=== PATIENT | male | born 1965 | race Caucasian/White ===

== ENCOUNTER 2017-01-14 09:01 | Emergency (ER) | payer BC ==
[~2017-01-14] VITALS: Wt 114.5 kg
[~2017-01-14 09:01] MED LIST: AMLO-147 PO; ATOR20TA38 PO; COLC0.6T6 PO; DICL50TA11 PO; HYD25 PO; HYDR-3498 PO; IBUP-1542 PO; INDO25CA25 PO; OXYC-281 PO; PERCOCET PO
[2017-01-14] MEDS ORDERED: BELLADONNA/PHENOBARBITAL TAB PO STA (09:43)
[2017-01-14] MEDS ORDERED: FAMOTIDINE 20 MG TAB PO STA (09:43)
[2017-01-14] MEDS ORDERED: LIDOCAINE/MYLANTA 40 ML BTL PO STA (09:43)
[2017-01-14] MEDS ORDERED: MAG355OR14 PO (09:47)
[2017-01-14] MEDS ORDERED: FAMO40TA52 PO (09:47)
[2017-01-14] MEDS ORDERED: ALPR0.5T PO (09:49)
[2017-01-14] MEDS ORDERED: LORAZEPAM 0.5 MG TAB PO ONE (10:00)
--- NOTE | 2017-01-14 11:04 | ERD ---
ER Documentation Chief Complaint Date/Time DATE: 01/14/17 TIME: 10:57 Chief Complaint ABD PAIN, HEADACHE, COUGH, ELEVATED BP HPI 51-year-old man with history of anxiety presents with multiple symptoms including burning epigastric discomfort which is nonradiating and non-exertional , pressure in the posterior scalp and neck, anxiety, palpitations, cough, and elevated blood pressure. He does have a history of hypertension and states he has not been using his medications as prescribed. He denies exertional chest pain, no shortness of breath, no weakness in his arms or legs, no slurred speech , no suicidal homicidal ideation. Patient denies calf or leg swelling, no swelling or redness to the knees. Patient denies fevers or chills. ROS All systems reviewed and are negative except as per history of present illness. Medications Home Meds Active Scripts Alprazolam* (Xanax*) 0.5 Mg Tab, 0.5 MG PO TID for ANXIETY, #12 TAB Prov:SHADY DUMONT MD 01/14/17 Famotidine* (Famotidine*) 40 Mg Tablet, 40 MG PO HS, #30 TAB Prov:SHADY DUMONT MD 01/14/17 Mag Hydrox/Al Hydrox/Simeth (Maalox Advanced Suspension) 355 Ml Oral.susp, 2 TSP PO TID for PAIN, #24 OZ Prov:SHADY DUMONT MD 01/14/17 Hydrocodone Bit-Acetaminophen* (Kite*) 5-325 Mg Tab, 1 TAB PO Q6 Y for PAIN, # 14 TAB Prov:EARL MARION MD 03/07/16 Colchicine* (Colcrys*) 0.6 Mg Tablet, 0.6 MG PO BID for 2 Days, TAB Prov:EARL MARION MD 03/07/16 Indomethacin* (Indocin*) 25 Mg Capsule, 25 MG PO Q6, #20 CAP Prov:EARL MARION MD 03/07/16 Diclofenac Sodium* (Diclofenac Sodium*) 50 Mg Tablet.dr, 50 MG PO BID, #30 TAB Prov:ANGELITO ZAMORA NP 03/03/16 Oxycodone Hcl-Acetaminophen* (Percocet*) 5-325 Mg Tablet, 1 TAB PO TID Y for PAIN LEVEL 6-10, #12 TAB Prov:SHADY DUMONT MD 03/01/16 Oxycodone Hcl/Acetaminophen (Percocet) 1 Tab Tab, 1 TAB PO TID for PAIN LEVEL 6- 10, #12 TAB Prov:SHADY DUMONT MD 03/01/16 Oxycodone Hcl-Acetaminophen* (Percocet*) 5-325 Mg Tablet, 1 TAB PO TID Y for PAIN LEVEL 6-10, #12 TAB Prov:SHADY DUMONT MD 03/01/16 Ibuprofen* (Ibuprofen*) 600 Mg Tablet, 600 MG PO TID for PAIN AND/OR INFLAMMATION, #30 TAB Prov:SHADY DUMONT MD 03/01/16 Reported Medications Amlodipine Besylate* (Amlodipine Besylate*) 10 Mg Tablet, 10 MG PO DAILY, #30 TAB 11/25/15 Atorvastatin Calcium* (Atorvastatin Calcium*) 20 Mg Tablet, 20 MG PO QHS, #30 TAB 11/25/15 Hydrochlorothiazide* (Hydrochlorothiazide*) 25 Mg Tab, 25 MG PO DAILY, #30 TAB 11/25/15 Allergies Allergies: Coded Allergies: No Known Drug Allergies (Verified Allergy, Unknown, 12/13/14) PMhx/Soc Hypertension, gastritis, anxiety, obesity, gouty arthritis History of Surgery: No (left inguinal hernia, right knee surgery) Anesthesia Reaction: No Hx Neurological Disorder: No Hx Respiratory Disorders: No Hx Cardiac Disorders: No Hx Psychiatric Problems: No Hx Miscellaneous Medical Probl: Yes (LEFT LOWER ABD HERNIA X 3 YEARS AGO ) Hx Alcohol Use: Yes (OCASSIONAL ) Hx Substance Use: No Hx Tobacco Use: No Smoking Status: Never smoker FmHx Family History: No diabetes Physical Exam Vitals Vital Signs Date Time Temp Pulse Resp B/P Pulse Ox O2 Delivery O2 Flow Rate FiO2 01/14/17 09:04 98.6 86 17 207/107 98 Physical Exam GENERAL: Well-developed, well-nourished, appears anxious HEENT: Moist mucous membranes, pink conjunctiva, no cervical spine tenderness or step-off deformities, no goiter, no jaundice or icterus, extraocular movements intact without pain. No submandibular induration, and no pharyngeal erythema NEURO: Alert and oriented 3, cranial nerves II through XII intact bilaterally, pupils equal round reactive to light, no focal deficits or facial asymmetry, sensation intact distally Strength 5/5 in upper and lower extremities bilaterally CARDIAC: Regular rate and rhythm, no murmurs rubs or gallops LUNGS: Clear bilaterally no wheezing crackles or stridor ABDOMEN: Soft nontender, no guarding, no rigidity, no rebound, no psoas sign no obturator sign. Normoactive bowel sounds SKIN: Warm and dry to touch, no abrasions, contusions, or hematomas, no lacerations, no ecchymosis, no target lesions, and without ulcers EXTREMITIES: No clubbing cyanosis or edema, calves are bilaterally symmetrical, no Homans sign, no popliteal cord sign. Distal pulses equal and bilateral PSYCH: Anxious Results 24 hrs Current Medications Medications (Trade) Dose Ordered Sig/Barbara Route PRN Reason Start Time Stop Time Status Last Admin Dose Admin Lorazepam (Ativan) 0.5 mg ONCE ONCE PO 01/14/17 10:00 01/14/17 10:01 DC 01/14/17 09:59 Famotidine (Pepcid) 40 mg ONCE STAT PO 01/14/17 09:43 01/14/17 09:46 DC 01/14/17 09:59 Miscellaneous Medication (Gi Cocktail (2)) 40 ml ONCE STAT PO 01/14/17 09:43 01/14/17 09:46 DC 01/14/17 10:00 Belladonna/ Phenobarbital () 2 tab ONCE STAT PO 01/14/17 09:43 01/14/17 09:46 DC 01/14/17 09:59 Clonidine (Catapres) 0.1 mg ONCE ONCE PO 01/14/17 10:00 01/14/17 10:01 DC 01/14/17 09:59 Procedures/MDM Patient was placed on gambling monitor rhythm strip revealed a sinus rhythm at about 80 bpm with upright P and T waves. Patient was afebrile. I administered clonidine 0.1 mg p.o. for hypertension, lorazepam 0.5 mg p.o. for anxiety, famotidine 40 mg p.o., and GI cocktail 50 cc p.o. with good response. EKG performed, read by me revealed a normal sinus rhythm at 77 bpm, left axis deviation and a right ventricular conduction delay with a QRS duration of 100 ms , no concerning ST elevations or depressions noted. Blood pressure improved after above medications. Differential diagnoses considered, included but not limited to acute coronary syndrome, pulmonary embolism, aortic dissection, abdominal aortic aneurysm, sepsis, stroke, meningitis, encephalitis, pneumonia, appendicitis, cholecystitis , bowel obstruction, pyelonephritis, nephrolithiasis, cystitis, as well as metabolic, hematologic, and electrolyte abnormalities. As well as abscess, cellulitis, fractures, and dislocations. Patient feels much better at this time, and vital signs are normal, symptoms have improved. I did give strict instructions to return to the ED if symptoms continue or worsen, patient will otherwise follow-up with primary care physician. Patient understood instructions and agreed to plan. Departure Diagnosis: Primary Impression: Hypertension Hypertension type: essential hypertension Qualified Code: I10 - Essential hypertension Additional Impressions: Dizziness GERD (gastroesophageal reflux disease) Esophagitis presence: with esophagitis Qualified Code: K21.0 - Gastroesophageal reflux disease with esophagitis Anxiety Condition: Good Patient Instructions: High Blood Pressure (Hypertension), Dizziness, Unk Cause , Gerd (Adult) SHADY DUMONT MD Jan 14, 2017 11:03
[2017-01-14 11:12] VITALS: BP 157/100; PULSE 89; RESP 20
== END 2017-01-14 11:13 | disposition home or self-care (01) ==
LOC: E/R 09:01
DX: I10 Essential (primary) hypertension (principal); R40.2252 Coma scale, best verbal response, oriented, at arrival to emergency department; R42 Dizziness and giddiness; K21.0 Gastro-esophageal reflux disease with esophagitis; F41.9 Anxiety disorder, unspecified; E66.9 Obesity, unspecified; R40.2142 Coma scale, eyes open, spontaneous, at arrival to emergency department; R40.2362 Coma scale, best motor response, obeys commands, at arrival to emergency department
CPT/HCPCS: 93005; 99283; Z7610

== ENCOUNTER 2017-01-16 17:15 | Emergency (ER) | payer BC ==
[~2017-01-16] VITALS: Ht 170.2 cm; Wt 114.0 kg
[~2017-01-16 17:15] MED LIST changes: +ALPR0.5T PO; +FAMO40TA52 PO; +MAG355OR14 PO
[2017-01-16 17:37] VITALS: Ht 170.2 cm; Wt 114.0 kg
[2017-01-16] MEDS ORDERED: SOD CHLORIDE 0.9% 500 ML IV STA (18:47)
[2017-01-16] MEDS ORDERED: DIPHENHYDRAMINE 50 MG INJ IV STA (18:47)
[2017-01-16] MEDS ORDERED: METOCLOPRAMIDE 10 MG INJ IV STA (18:47)
[2017-01-16 19:14] LABS: ADD SCAN DIFF NO
[2017-01-16 19:17] LABS: BASOPHIL # 0.1 10^3/ul (0.0-0.1); BASOPHILS % 0.6 % (0.0-2.0); EOSINOPHILS # 0.2 10^3/ul (0.0-0.5); EOSINOPHILS % 1.3 % (0.0-7.0); HEMATOCRIT 39.5 % (42.0-52.0); HEMOGLOBIN 13.7 g/dl (14.0-18.0); LYMPHOCYTES # 4.6 10^3/ul (0.8-2.9); LYMPHOCYTES % 36.3 % (15.0-51.0); MEAN CORPUSCULAR HEMOGLOBIN 29.9 pg (29.0-33.0); MEAN CORPUSCULAR HGB CONC 34.7 g/dl (32.0-37.0); MEAN CORPUSCULAR VOLUME 86.2 fl (82.0-101.0); MEAN PLATELET VOLUME 9.7 fl (7.4-10.4); MONOCYTE # 0.7 10^3/ul (0.3-0.9); MONOCYTES % 5.8 % (0.0-11.0); NEUTROPHIL # 6.9 10^3/ul (1.6-7.5); NEUTROPHILS % 54.6 % (39.0-77.0); PLATELET COUNT 370 10^3/UL (140-415); RED BLOOD COUNT 4.58 10^6/ul (4.70-6.10); RED CELL DISTRIBUTION WIDTH 11.9 % (11.5-14.5); WHITE BLOOD COUNT 12.7 10^3/ul (4.8-10.8)
[2017-01-16 19:26] LABS: ALBUMIN 3.8 g/dl (3.3-4.9); POTASSIUM 4.1 mmol/L (3.5-5.1)
[2017-01-16 19:28] LABS: CREATININE 0.89 mg/dl (0.61-1.24)
[2017-01-16 19:29] LABS: ALBUMIN/GLOBULIN RATIO 1.05; BILIRUBIN,INDIRECT 0.3 mg/dl (0-1.1); BILIRUBIN,TOTAL 0.3 mg/dl (0.2-1.3); CALCIUM 8.8 mg/dl (8.4-10.2); TOTAL PROTEIN 7.4 g/dl (6.1-8.1)
--- NOTE | 2017-01-16 19:33 | RADRPT ---
PROCEDURE: CT Brain without contrast. CLINICAL INDICATION: Headaches TECHNIQUE: A CT of the brain was performed on a [employer] 64-slice CT scanner utilizing axial imaging from the skull base through the vertex without IV contrast. Multiplanar reformatted images were made. Images were reviewed on a PACS workstation. The CTDIvol is 43.05 mGy and the DLP is 720 .23 mGycm. One of the following 3 dose reduction techniques were used: Automated exposure control; adjustment of the mA and/or kV according to patient size; or use of iterative reconstruction technique. COMPARISON: 02/09/[address] FINDINGS: There is no intracranial hemorrhage, mass effect, or midline shift. No extra-axial fluid collection is seen. The ventricles and sulci are normal in size and configuration. Normal russo-white matter di fferentiation is present. The visualized scalp and calvarium are again remarkable for a stable appearing 3 mm radio dense fore ign body adjacent to the left nasal bone. A small right frontal scalp soft tissue prominence or lesi on is noted which measures 2 cm. This is unchanged from prior CT. The bilateral orbits are normal. The bilateral paranasal sinuses, mastoid air cells and middle ear cavities are clear. IMPRESSION: 1. No evidence of acute intracranial hemorrhage, infarcts, or acute intracranial pathology. 2. 2 cm right frontal convexity soft tissue asymmetry stable from prior CT. 3. Stable 3 mm radiodense metallic foreign body adjacent to the left nasal bone RPTAT: HDC .Melida Nash MD, Date Time Electronically viewed and signed by .Melida Nash MD, on 01/16/2017 19:33 .C/
[2017-01-16] MEDS ORDERED: FIORICET PO (20:53)
--- NOTE | 2017-01-16 21:23 | ERA ---
ER Documentation Chief Complaint Date/Time DATE: 01/16/17 TIME: 21:18 Chief Complaint headache x 4 days HPI 51-year-old male who presents emergency room with multiple complaints for approximately 3 years. He describes epigastric abdominal pain and headache. He describes daily headaches that are gradual, dull, occipital. The headaches have not been evaluated. With CT imaging. The patient's abdominal pain is unchanged for approximately 3 years. For some reason the patient's primary care doctor sent him to the emergency room even though the symptoms are unchanged. He denies any fevers or chills, no chest pain. ROS All systems reviewed and are negative except as per history of present illness. Medications Home Meds Active Scripts Acetamin/Butalbital/Caffeine* (Fioricet*) [id number] Tab, 1 TAB PO Q6H Y for PAIN, #30 TAB Prov:NHI DANIELS MD 01/16/17 Alprazolam* (Xanax*) 0.5 Mg Tab, 0.5 MG PO TID for ANXIETY, #12 TAB Prov:SHADY DUMONT MD 01/14/17 Famotidine* (Famotidine*) 40 Mg Tablet, 40 MG PO HS, #30 TAB Prov:SHADY DUMONT MD 01/14/17 Mag Hydrox/Al Hydrox/Simeth (Maalox Advanced Suspension) 355 Ml Oral.susp, 2 TSP PO TID for PAIN, #24 OZ Prov:SHADY DUMONT MD 01/14/17 Hydrocodone Bit-Acetaminophen* ([place]*) 5-325 Mg Tab, 1 TAB PO Q6 Y for PAIN, # 14 TAB Prov:EARL MARION MD 03/07/16 Colchicine* (Colcrys*) 0.6 Mg Tablet, 0.6 MG PO BID for 2 Days, TAB Prov:EARL MARION MD 03/07/16 Indomethacin* (Indocin*) 25 Mg Capsule, 25 MG PO Q6, #20 CAP Prov:EARL MARION MD 03/07/16 Diclofenac Sodium* (Diclofenac Sodium*) 50 Mg Tablet.dr, 50 MG PO BID, #30 TAB Prov:ANGELITO ZAMORA NP 03/03/16 Oxycodone Hcl-Acetaminophen* (Percocet*) 5-325 Mg Tablet, 1 TAB PO TID Y for PAIN LEVEL 6-10, #12 TAB Prov:SHADY DUMONT MD 03/01/16 Oxycodone Hcl/Acetaminophen (Percocet) 1 Tab Tab, 1 TAB PO TID for PAIN LEVEL 6- 10, #12 TAB Prov:SHADY DUMONT MD 03/01/16 Oxycodone Hcl-Acetaminophen* (Percocet*) 5-325 Mg Tablet, 1 TAB PO TID Y for PAIN LEVEL 6-10, #12 TAB Prov:SHADY DUMONT MD 03/01/16 Ibuprofen* (Ibuprofen*) 600 Mg Tablet, 600 MG PO TID for PAIN AND/OR INFLAMMATION, #30 TAB Prov:SHADY DUMONT MD 03/01/16 Reported Medications Amlodipine Besylate* (Amlodipine Besylate*) 10 Mg Tablet, 10 MG PO DAILY, #30 TAB 11/25/15 Atorvastatin Calcium* (Atorvastatin Calcium*) 20 Mg Tablet, 20 MG PO QHS, #30 TAB 11/25/15 Hydrochlorothiazide* (Hydrochlorothiazide*) 25 Mg Tab, 25 MG PO DAILY, #30 TAB 11/25/15 Allergies Allergies: Coded Allergies: No Known Drug Allergies (Verified Allergy, Unknown, 12/13/14) PMhx/Soc History of Surgery: No (left inguinal hernia, right knee surgery) Anesthesia Reaction: No Hx Neurological Disorder: No Hx Respiratory Disorders: No Hx Cardiac Disorders: No Hx Psychiatric Problems: No Hx Miscellaneous Medical Probl: Yes (LEFT LOWER ABD HERNIA X 3 YEARS AGO ) Hx Alcohol Use: Yes (OCASSIONAL ) Hx Substance Use: No Hx Tobacco Use: No Smoking Status: Unknown if ever smoked FmHx Family History: No diabetes Physical Exam Vitals Vital Signs Date Time Temp Pulse Resp B/P Pulse Ox O2 Delivery O2 Flow Rate FiO2 01/16/17 17:37 98.7 79 18 174/103 96 Physical Exam General: Well developed, well nourished, no acute distress Head: Normocephalic, atraumatic. Eyes: Pupils equally reactive, EOM intact ENT: Moist mucous membranes Neck: Supple, no lymphadenopathy Respiratory: Lungs clear bilaterally, no distress Cardiovascular: RRR, no murmurs, rubs, or gallops Abdominal: Soft, non-tender, non-distended, no peritoneal signs : Deferred MSK: No edema, no unilateral swelling, 5/5 strength Neurologic: Alert and oriented, moving all extremities, normal speech, no focal weakness, no cerebellar signs Skin: No rash Psych: Normal mood Result Diagram: 01/16/17190901/16/171909 Results 24 hrs Laboratory Tests Test 01/16/17 19:10 Alanine Aminotransferase (ALT/SGPT) 36IU/L Albumin 3.8g/dl Albumin/Globulin Ratio 1.05 Alkaline Phosphatase 173IU/L Anion Gap 15 Aspartate Amino Transf (AST/SGOT) 31IU/L Basophils # 0.110^3/ul Basophils % 0.6% Blood Urea Nitrogen 15mg/dl Calcium Level 8.8mg/dl Carbon Dioxide Level 29mmol/L Chloride Level 103mmol/L Creatinine 0.89mg/dl Direct Bilirubin 0.00mg/dl Eosinophils # 0.210^3/ul Eosinophils % 1.3% Globulin 3.60g/dl Glucose Level 95mg/dl Hematocrit 39.5% Hemoglobin 13.7g/dl Indirect Bilirubin 0.3mg/dl Lipase 126U/L Lymphocytes # 4.610^3/ul Lymphocytes % 36.3% Mean Corpuscular Hemoglobin 29.9pg Mean Corpuscular Hemoglobin Concent 34.7g/dl Mean Corpuscular Volume 86.2fl Mean Platelet Volume 9.7fl Monocytes # 0.710^3/ul Monocytes % 5.8% Neutrophils # 6.910^3/ul Neutrophils % 54.6% Nucleated Red Blood Cells # 0.010^3/ul Nucleated Red Blood Cells % 0.0/100WBC Platelet Count 02333^3/UL Potassium Level 4.1mmol/L Red Blood Count 4.5810^6/ul Red Cell Distribution Width 11.9% Sodium Level 143mmol/L Total Bilirubin 0.3mg/dl Total Protein 7.4g/dl White Blood Count 12.710^3/ul Current Medications Medications (Trade) Dose Ordered Sig/Barbara Route PRN Reason Start Time Stop Time Status Last Admin Dose Admin Sodium Chloride (NS) 500 ml @ 500 mls/hr Q1H STAT IV 01/16/17 18:47 01/16/17 19:46 DC 01/16/17 19:07 Metoclopramide HCl (Reglan) 10 mg ONCE STAT IV 01/16/17 18:47 01/16/17 18:49 DC 01/16/17 19:07 Diphenhydramine HCl (Benadryl) 25 mg ONCE STAT IV 01/16/17 18:47 01/16/17 18:49 DC 01/16/17 19:06 Procedures/MDM EKG, MONITORS, & DIAGNOSTIC IMAGING: IMPRESSION: 1. No evidence of acute intracranial hemorrhage, infarcts, or acute intracranial pathology. 2. 2 cm right frontal convexity soft tissue asymmetry stable from prior CT. 3. Stable 3 mm radiodense metallic foreign body adjacent to the left nasal bone LAB INTERPRETATION: Subtle leukocytosis that is nonspecific, nonobstructive hepatobiliary pattern MEDICAL DECISION MAKING: The patient has had 3 years of abdominal pain and headaches. Nothing is changed today. Is unclear why the patient's doctor sent him to the emergency room. He has a benign abdominal exam a nonfocal neurologic exam. He states that he has not had CT imaging in the past therefore CT imaging to rule out mass would be reasonable. His abdominal pain is likely subacute, likely secondary to gastric process. The patient has not had GI follow-up or endoscopy. Referral was indicated. ER COURSE: Subtle leukocytosis but no other acute process. The patient was given IV fluids Reglan and Benadryl with resolution of his symptoms. Patient is stable for outpatient management. I reached out to the patient's referring provider with no success. I kept the patient and/or family informed of laboratory and diagnostic imaging results throughout the emergency room course. DISPOSITION PLAN: We discussed follow up with the patient's primary care doctor within 24 to 48 hours as needed. We also discussed return to the emergency room for worsening symptoms or worsening condition. Outpatient referral: See primary care physician for referral to neurology and gastroenterology Discharge Medications: Fioricet Departure Diagnosis: Primary Impression: Chronic headache Qualified Code: R51 - Chronic nonintractable headache, unspecified headache type Additional Impression: Chronic abdominal pain Condition: Stable Patient Instructions: Headache, Unspecified Additional Instructions: Call your primary care doctor TOMORROW for an appointment during the next 1 WEEK.Tell the patient care secretary that you were referred from this facility.See the doctor sooner or return here if your condition worsens before your appointment time. NHI DANIELS MD Jan 16, 2017 21:23
== END 2017-01-16 21:21 | disposition home or self-care (01) ==
LOC: E/R 17:15
DX: R51 Headache (principal); R10.9 Unspecified abdominal pain; R40.2142 Coma scale, eyes open, spontaneous, at arrival to emergency department; R40.2252 Coma scale, best verbal response, oriented, at arrival to emergency department; R40.2362 Coma scale, best motor response, obeys commands, at arrival to emergency department
CPT/HCPCS: 36415; 70450; 80053; 83690; 85025; 96374; 96375; 99285; J1200; J2765; J7040

== ENCOUNTER 2017-05-31 14:25 | Emergency (ER) | payer BC ==
[~2017-05-31] VITALS: Ht 175.3 cm; Wt 114.5 kg
[~2017-05-31 14:25] MED LIST changes: +FIORICET PO
[2017-05-31 14:26] VITALS: Ht 175.3 cm; Wt 114.5 kg
[2017-05-31] MEDS ORDERED: SOD CHLORIDE 0.9% 1,000 ML IV STA (15:09)
[2017-05-31] MEDS ORDERED: morphine 4 MG/ML VIAL IV STA (15:09)
[2017-05-31] MEDS ORDERED: ONDANSETRON 4 MG INJ IV STA (15:09)
[2017-05-31 15:22] LABS: URINE BLOOD (Dip) POC Negative (NEGATIVE)
[2017-05-31 15:49] LABS: BASOPHIL # 0.1 10^3/ul (0.0-0.1); BASOPHILS % 0.7 % (0.0-2.0); EOSINOPHILS # 0.3 10^3/ul (0.0-0.5); EOSINOPHILS % 2.9 % (0.0-7.0); HEMATOCRIT 40.6 % (42.0-52.0); HEMOGLOBIN 14.3 g/dl (14.0-18.0); LYMPHOCYTES # 3.5 10^3/ul (0.8-2.9); LYMPHOCYTES % 34.5 % (15.0-51.0); MEAN CORPUSCULAR HGB CONC 35.2 g/dl (32.0-37.0); MEAN CORPUSCULAR VOLUME 85.1 fl (82.0-101.0); MONOCYTE # 0.8 10^3/ul (0.3-0.9); MONOCYTES % 7.8 % (0.0-11.0); NEUTROPHIL # 5.3 10^3/ul (1.6-7.5); NEUTROPHILS % 53.3 % (39.0-77.0); PLATELET COUNT 330 10^3/UL (140-415); RED BLOOD COUNT 4.77 10^6/ul (4.70-6.10); RED CELL DISTRIBUTION WIDTH 12.3 % (11.5-14.5)
--- NOTE | 2017-05-31 15:52 | RADRPT ---
PROCEDURE: CT abdomen and pelvis without IV contrast. CLINICAL INDICATION: Abdominal pain TECHNIQUE: CT scan of the abdomen and pelvis without contrast was performed on the [employer] volumetric [address] scanner. The patient was scanned without intravenous contrast. Coronal and sagittal refo rmatted images were obtained from the axial source images. The CTDI vol is 22.27 mGy and the DLP is 1510.09 mGy-cm. COMPARISON: None. FINDINGS: CT abdomen: The lung bases are clear. The heart size is not enlarged and is without pericardial thickening or e ffusion. The liver is normal in size and density and is without focal mass or intrahepatic biliary dilatation . The spleen is normal in size and homogeneous in density. The stomach is grossly unremarkable. T he pancreas as visualized is normal. The gallbladder has been removed. No common bile duct dilatat ion is seen. The adrenal glands are symmetric and normal. The kidneys are symmetrically unremarkabl e as well. No renal calculus or obstructive uropathy or mass lesion is seen. The aorta is of normal in caliber. There is no retroperitoneal lymphadenopathy. The ismael hepatis region is clear. The large bowel is stool-filled. The small and large bowel and mesentery, as visua lized, are otherwise unremarkable. The normal appendix is identified. CT pelvis: The pelvic organs are normal. The pelvic sidewalls and inguinal regions are clear. No pelvic mass, lymphadenopathy, or free fluid is seen. No acute inflammation is seen. The urinary bladder is wit hin normal limits. Degenerative spondylosis of the lumbar spine is seen. No osteolytic or osteoblastic lesion is detec dougie. IMPRESSION: 1. No acute pathology in the abdomen and pelvis. 2. Stool filled large bowel. 3. Status post cholecystectomy. RPTAT: HPNM Physician Marc Date Time Electronically viewed and signed by Physician Marc on 05/31/2017 15:52 /
[2017-05-31 16:07] LABS: ADD UMIC NO; UR ASCORBIC ACID NEGATIVE (NEGATIVE); UR BILIRUBIN (Dip) NEGATIVE (NEGATIVE); UR BLOOD (Dip) NEGATIVE (NEGATIVE); UR CLARITY CLEAR (CLEAR); UR COLOR YELLOW (YELLOW); UR GLUCOSE (Dip) NEGATIVE (NEGATIVE); UR KETONES (Dip) NEGATIVE (NEGATIVE); UR LEUKOCYTE ESTERASE (Dip) NEGATIVE Leu/ul (NEGATIVE); UR NITRITE (Dip) NEGATIVE (NEGATIVE); UR SPECIFIC GRAVITY (Dip) 1.024 (1.003-1.030); UR TOTAL PROTEIN (Dip) NEGATIVE (NEGATIVE); UR UROBILINOGEN (Dip) NEGATIVE (NEGATIVE)
--- NOTE | 2017-05-31 16:07 | RADRPT ---
PROCEDURE: Chest Radiograph. CLINICAL INDICATION: Abdominal pain. TECHNIQUE: Single frontal chest radiograph. COMPARISON: CT abdomen pelvis 05/31/2017 FINDINGS: The cardiomediastinal silhouette is within normal limits. No infiltrate or effusion is seen. Th e bones are intact. IMPRESSION: 1. Unremarkable chest radiograph. RPTAT: KK .Berto Louis MD, MD Date Time Electronically viewed and signed by .Berto Louis MD, on 05/31/2017 16:07 .B/
[2017-05-31 16:08] LABS: ALANINE AMINOTRANSFERASE 55 IU/L (13-69); ALBUMIN 4.4 g/dl (3.3-4.9); ALBUMIN/GLOBULIN RATIO 1.12; ALKALINE PHOSPHATASE 192 IU/L (42-121); ANION GAP 19 (8-16); ASPARTATE AMINO TRANSFERASE 45 IU/L (15-46); BILIRUBIN,INDIRECT 0.5 mg/dl (0-1.1); BILIRUBIN,TOTAL 0.5 mg/dl (0.2-1.3); BLOOD UREA NITROGEN 15 mg/dl (7-20); CALCIUM 9.1 mg/dl (8.4-10.2); CARBON DIOXIDE 27 mmol/L (21-31); CHLORIDE 103 mmol/L (97-110); GLUCOSE 112 mg/dl (70-220); POTASSIUM 3.8 mmol/L (3.5-5.1); SODIUM 145 mmol/L (135-144); TOTAL PROTEIN 8.3 g/dl (6.1-8.1)
[2017-05-31 16:23] LABS: TROPONIN-I < 0.012 ng/ml (0.00-0.12)
[2017-05-31] MEDS ORDERED: KETOROLAC 30 MG INJ IV STA (16:34)
[2017-05-31] MEDS ORDERED: POLYETHYLENE GLYCOL 17 GM PACKET PO STA (16:37)
[2017-05-31] MEDS ORDERED: NA PHOSPHATE/BIPHOS 133 ML ENEMA PR STA (16:59)
[2017-05-31] MEDS ORDERED: DOCUSATE SODIUM 100 MG CAP PO ONE (17:00)
[2017-05-31] MEDS ORDERED: BENZ100C70 PO (17:23)
[2017-05-31] MEDS ORDERED: ACET325T33 PO (17:23)
[2017-05-31] MEDS ORDERED: FLUT9.9S NASAL (17:25)
[2017-05-31 18:12] VITALS: BP 167/98; PULSE 85; RESP 20; TEMP 98.3
[2017-05-31] MEDS ORDERED: BEN25 PO (18:19)
--- NOTE | 2017-06-01 16:37 | ERD ---
ER Documentation Chief Complaint Date/Time DATE: 06/01/17 TIME: 16:31 Chief Complaint RIB CAGE PAIN , COUGH X FEW DAYS HPI 51-year-old male history of hypertension presenting to the emergency department with multiple complaints. Patient is complaining of cough, chest discomfort when he takes a deep breath and, shortness of breath, right upper quadrant abdominal pain for the past couple weeks. Patient states that the pain is located in his right upper rib cage. Patient complains of cough episodes that last for a couple minutes 4 times a day. Patient is requesting pain medication. He denies taking any medications for this. ROS All systems reviewed and are negative except as per history of present illness. Medications Home Meds Active Scripts Diphenhydramine Hcl* (Benadryl*) 25 Mg Cap, 25 MG PO Q6 Y for ITCHING/RASH, #30 TAB Prov:SHELTON SCOTT PA-C 05/31/17 Fluticasone Propionate (Flonase Allergy Relief) 9.9 Ml [place].susp, 1 SPRAY NASAL BID, #1 BOTTLE TO EACH NOSTRIL Prov:SHELTON SCOTT PA-C 05/31/17 Benzonatate* (Tessalon Perle*) 100 Mg Capsule, 100 MG PO Q8H Y for COUGH, #20 CAP Prov:SHELTON SCOTT PA-C 05/31/17 Acetaminophen* (Tylenol*) 325 Mg Tablet, 2 TAB PO Q4 Y for PAIN AND OR ELEVATED TEMP, #30 TAB Prov:SHELTON SCOTT PA-C 05/31/17 Acetamin/Butalbital/Caffeine* (Fioricet*) [id number] Tab, 1 TAB PO Q6H Y for PAIN, #30 TAB Prov:NHI DANIELS MD 01/16/17 Alprazolam* (Xanax*) 0.5 Mg Tab, 0.5 MG PO TID for ANXIETY, #12 TAB Prov:SHADY DUMONT MD 01/14/17 Famotidine* (Famotidine*) 40 Mg Tablet, 40 MG PO HS, #30 TAB Prov:SHADY DUMONT MD 01/14/17 Mag Hydrox/Al Hydrox/Simeth (Maalox Advanced Suspension) 355 Ml Oral.susp, 2 TSP PO TID for PAIN, #24 OZ Prov:SHADY DUMONT MD 01/14/17 Hydrocodone Bit-Acetaminophen* ([place]*) 5-325 Mg Tab, 1 TAB PO Q6 Y for PAIN, # 14 TAB Prov:EARL MARION MD 03/07/16 Colchicine* (Colcrys*) 0.6 Mg Tablet, 0.6 MG PO BID for 2 Days, TAB Prov:EARL MARION MD 03/07/16 Indomethacin* (Indocin*) 25 Mg Capsule, 25 MG PO Q6, #20 CAP Prov:EARL MARION MD 03/07/16 Diclofenac Sodium* (Diclofenac Sodium*) 50 Mg Tablet.dr, 50 MG PO BID, #30 TAB Prov:ANGELITO ZAMORA NP 03/03/16 Oxycodone Hcl-Acetaminophen* (Percocet*) 5-325 Mg Tablet, 1 TAB PO TID Y for PAIN LEVEL 6-10, #12 TAB Prov:SHADY DUMONT MD 03/01/16 Oxycodone Hcl/Acetaminophen (Percocet) 1 Tab Tab, 1 TAB PO TID for PAIN LEVEL 6- 10, #12 TAB Prov:SHADY DUMONT MD 03/01/16 Oxycodone Hcl-Acetaminophen* (Percocet*) 5-325 Mg Tablet, 1 TAB PO TID Y for PAIN LEVEL 6-10, #12 TAB Prov:SHADY DUMONT MD 03/01/16 Ibuprofen* (Ibuprofen*) 600 Mg Tablet, 600 MG PO TID for PAIN AND/OR INFLAMMATION, #30 TAB Prov:SHADY DUMONT MD 03/01/16 Reported Medications Amlodipine Besylate* (Amlodipine Besylate*) 10 Mg Tablet, 10 MG PO DAILY, #30 TAB 11/25/15 Atorvastatin Calcium* (Atorvastatin Calcium*) 20 Mg Tablet, 20 MG PO QHS, #30 TAB 11/25/15 Hydrochlorothiazide* (Hydrochlorothiazide*) 25 Mg Tab, 25 MG PO DAILY, #30 TAB 11/25/15 Allergies Allergies: Coded Allergies: No Known Drug Allergies (Verified Allergy, Unknown, 12/13/14) PMhx/Soc History of Surgery: No (left inguinal hernia, right knee surgery, appy, loreta.) Anesthesia Reaction: No Hx Neurological Disorder: No Hx Respiratory Disorders: No Hx Cardiac Disorders: Yes (htn) Hx Psychiatric Problems: No Hx Miscellaneous Medical Probl: Yes (LEFT LOWER ABD HERNIA X 3 YEARS AGO ) Hx Alcohol Use: Yes (OCASSIONAL on weekends) Hx Substance Use: No Hx Tobacco Use: No Smoking Status: Never smoker Physical Exam Vitals Vital Signs Date Time Temp Pulse Resp B/P Pulse Ox O2 Delivery O2 Flow Rate FiO2 05/31/17 18:12 98.3 85 20 167/98 98 Room Air 05/31/17 14:26 98.8 92 18 161/86 98 Physical Exam GENERAL: no acute distress, non-toxic appearing, sitting up in bed Morbidly obese HENT: normocephalic/atraumatic EYES: conjunctiva is normal NECK: no noticeable or palpable swelling, no carotid bruits, no JVD CARDIOVASCULAR: RRR, good S1S2, no murmurs or gallops heard PULM: clear to auscultation, no use of accessory muscles, no crackles or wheezes. ABDOMEN: normal bowel sounds, abdomen soft, tender palpation the right upper quadrant EXT: no edema, cyanosis or clubbing MUSCULOSKELETAL: 5/5 strength, normal range of motion, no swollen or erythematous joints. NEURO: alert and oriented SKIN: no rashes, skin warm and dry, no erythematous areas PSYCH: normal mood and mentation, denies suicidal or homicidal ideation and thoughts Result Diagram: 05/31/17 1530 05/31/17 1530 Results 24 hrs Laboratory Tests Test 05/31/17 15:28 05/31/17 15:30 Bedside Urine pH (LAB) 5.5 Bedside Urine Protein (LAB) 1+ Bedside Urine Glucose (UA) Negative Bedside Urine Ketones (LAB) Negative Bedside Urine Blood Negative Bedside Urine Nitrite (LAB) Negative Bedside Urine Leukocyte Esterase (L Negative White Blood Count 10.010^3/ul Red Blood Count 4.7710^6/ul Hemoglobin 14.3g/dl Hematocrit 40.6% Mean Corpuscular Volume 85.1fl Mean Corpuscular Hemoglobin 30.0pg Mean Corpuscular Hemoglobin Concent 35.2g/dl Red Cell Distribution Width 12.3% Platelet Count 76921^3/UL Mean Platelet Volume 10.0fl Neutrophils % 53.3% Lymphocytes % 34.5% Monocytes % 7.8% Eosinophils % 2.9% Basophils % 0.7% Nucleated Red Blood Cells % 0.0/100WBC Neutrophils # 5.310^3/ul Lymphocytes # 3.510^3/ul Monocytes # 0.810^3/ul Eosinophils # 0.310^3/ul Basophils # 0.110^3/ul Nucleated Red Blood Cells # 0.010^3/ul Urine Color YELLOW Urine Clarity CLEAR Urine pH 5.0 Urine Specific [place] 1.024 Urine Ketones NEGATIVEmg/dL Urine Nitrite NEGATIVEmg/dL Urine Bilirubin NEGATIVEmg/dL Urine Urobilinogen NEGATIVEmg/dL Urine Leukocyte Esterase NEGATIVELeu/ul Urine Hemoglobin NEGATIVEmg/dL Urine Glucose NEGATIVEmg/dL Urine Total Protein NEGATIVEmg/dl Sodium Level 145mmol/L Potassium Level 3.8mmol/L Chloride Level 103mmol/L Carbon Dioxide Level 27mmol/L Anion Gap 19 Blood Urea Nitrogen 15mg/dl Creatinine 1.00mg/dl Glucose Level 112mg/dl Calcium Level 9.1mg/dl Total Bilirubin 0.5mg/dl Direct Bilirubin 0.00mg/dl Indirect Bilirubin 0.5mg/dl Aspartate Amino Transf (AST/SGOT) 45IU/L Alanine Aminotransferase (ALT/SGPT) 55IU/L Alkaline Phosphatase 192IU/L Troponin I < 0.012ng/ml Total Protein 8.3g/dl Albumin 4.4g/dl Globulin 3.90g/dl Albumin/Globulin Ratio 1.12 Lipase 116U/L Current Medications Medications (Trade) Dose Ordered Sig/Barbara Route PRN Reason Start Time Stop Time Status Last Admin Dose Admin Sodium Chloride (NS) 1,000 ml @ 1,000 mls/hr Q1H STAT IV 05/31/17 15:09 05/31/17 16:08 DC 05/31/17 15:53 Morphine Sulfate (morphine) 8 mg ONCE STAT IV 05/31/17 15:09 05/31/17 15:10 DC 05/31/17 15:54 Ondansetron HCl (Zofran Inj) 4 mg ONCE STAT IV 05/31/17 15:09 05/31/17 15:10 DC 05/31/17 15:53 Ketorolac Tromethamine (Toradol) 30 mg ONCE STAT IV 05/31/17 16:34 7/27/17 16:38 DC 05/31/17 16:45 Polyethylene Glycol (Miralax) 17 gm ONCE STAT PO 05/31/17 16:37 05/31/17 16:38 DC 05/31/17 16:57 Docusate Sodium (Colace) 100 mg ONCE ONCE PO 05/31/17 17:00 05/31/17 17:18 DC 05/31/17 16:54 Sodium Biphosphate/ Sodium Phosphate (Fleet Enema) 133 ml ONCE STAT TN 05/31/17 16:59 05/31/17 17:18 DC 05/31/17 17:24 Procedures/MDM This is a 51-year-old male presenting to the emergency department complaining of cough, shortness of breath, chest discomfort when he takes a deep breath and abdominal pain for past few weeks. Patient is morbidly obese. He has stable vital signs, he is speaking clearly ambulating well. EKG was done in the ED did not show any evidence of STEMI. Chest x-ray did not show any evidence of infiltrates, pneumothorax or pleural effusion. IV access established, Lab work was drawn. CBC did not show any evidence of leukocytosis or anemia. CMP did not show any evidence of renal, liver, or electrolyte abnormalities. Lipase was normal. UA did not show any evidence of hemoglobin or urinary tract infection. Troponin was negative. CT abd and pelvis without contrast: 1. No acute pathology in the abdomen and pelvis. 2. Stool filled large bowel. 3. Status post cholecystectomy. Patient was given MiraLAX, Colace in the ED. He was given morphine for pain. I have consulted my supervising physician regarding this patient and he stated that patient is appropriate to be discharged home. I discussed with him to follow-up with his primary care physician. Discussed return the ER for any worsening symptoms. He understands and agrees with plan Departure Diagnosis: Primary Impression: Abdominal pain Additional Impression: Cough Condition: Stable Patient Instructions: Abdominal Pain, Treating Constipation, Constipation ( Adult), Cough, Chronic, Uncertain Cause, (Adult) Referrals: SAM STONE MD (PCP) Additional Instructions: Visite a carter jose guadalupe owens para un EXAMEN.Regrese a estas instalaciones si no se mejora giovana esperbamos o giovana le dijimos. [place] toda la medicina jason y giovana se le indic. Regrese a estas instalaciones si no se mejora giovana esperbamos o giovana le dijimos. SHELTON SCOTT PA-C Jun 01, 2017 16:37
[2017-06-02 16:09] LABS: URINE BLOOD (Dip) POC Negative (NEGATIVE)
== END 2017-05-31 20:22 | disposition home or self-care (01) ==
LOC: FTE 14:25
DX: R10.11 Right upper quadrant pain (principal); I10 Essential (primary) hypertension
CPT/HCPCS: 36415; 71010; 74176; 80053; 81003; 83690; 84484; 85025; 96374; 96375; 99285; J1885; J2270; J2405; J7030; Z7610

== ENCOUNTER 2018-03-15 11:06 | Day surgery (SDC) | END 2018-03-15 15:20 | disposition home or self-care (01) ==

== ENCOUNTER 2018-03-28 05:26 | Emergency (ER) | END 2018-03-28 07:35 | disposition home or self-care (01) ==

== ENCOUNTER 2018-11-10 07:48 | Emergency (ER) | payer BC ==
[~2018-11-10] VITALS: Ht 167.6 cm; Wt 111.5 kg
[~2018-11-10 07:48] MED LIST changes: -ALPR0.5T PO; -AMLO-147 PO; +BENA20TA4 PO; -COLC0.6T6 PO; +DICL100G37 TOP; -DICL50TA11 PO; +ESOM40CA PO; -FAMO40TA52 PO; -FIORICET PO; -HYD25 PO; -HYDR-3498 PO; +HYDR12.58 PO; -IBUP-1542 PO; -INDO25CA25 PO; -MAG355OR14 PO; +NAPR-985 PO; -OXYC-281 PO; -PERCOCET PO
[2018-11-10 07:51] VITALS: RESP 20; Ht 167.6 cm; Wt 111.5 kg
[2018-11-10] MEDS ORDERED: OSLT75C PO (07:59)
--- NOTE | 2018-11-10 08:00 | ERD ---
ER Documentation Chief Complaint Chief Complaint Complains of cough colds and flu like symptoms HPI 53-year-old male presents the emergency department complaining of one week of cough, congestion, body aches. Patient reports no sputum production or hemoptysis. He reports no shortness of breath. Patient reports no nausea, vomiting, diarrhea. ROS All systems reviewed and are negative except as per history of present illness. Medications Home Meds Active Scripts Oseltamivir Phosphate* (Tamiflu*) 75 Mg Capsule, 75 MG PO BID for 5 Days, CAP Prov:VERNA FORREST 11/10/18 Diclofenac Sodium* (Voltaren* Gel) 1% -100 Gm Gel, 2 GM TOP QID, #1 TUB Prov:MARGIE MORA PA-C 03/28/18 Naproxen* (Naprosyn*) 500 Mg Tablet, 500 MG PO BID PRN for PAIN AND/OR INFLAMMATION, #30 TAB Prov:MARGIE MORA PA-C 03/28/18 Reported Medications Hydrochlorothiazide* (Hydrochlorothiazide*) 12.5 Mg Tablet, 12.5 MG PO DAILY, #30 TAB 03/15/18 Esomeprazole Mag Trihydrate (Nexium) 40 Mg Capsule.dr, 40 MG PO DAILY, #30 CAP 03/15/18 Benazepril Hcl* (Benazepril Hcl*) 20 Mg Tablet, 20 MG PO DAILY, #30 TAB 03/15/18 Atorvastatin Calcium* (Atorvastatin Calcium*) 20 Mg Tablet, 20 MG PO QHS, #30 TAB 11/25/15 Allergies Allergies: Coded Allergies: No Known Drug Allergies (Verified Allergy, Unknown, 03/28/18) PMhx/Soc History of Surgery: Yes (BACK SX, KNEE SX, HERNIA REPAIR, CHOLECYSECTOMY) Anesthesia Reaction: No Hx Neurological Disorder: No Hx Respiratory Disorders: No Hx Cardiac Disorders: Yes (HYPERTENSION) Hx Psychiatric Problems: No Hx Miscellaneous Medical Probl: Yes (HYPERLIPIDEMIA) Hx Alcohol Use: No Hx Substance Use: No Hx Tobacco Use: No Physical Exam Vitals Vital Signs Date Temp Pulse Resp B/P (MAP) Pulse Ox O2 O2 Flow FiO2 Time Delivery Rate 11/10/18 97.8 75 20 164/103 98 07:51 (123) Physical Exam GENERAL: The patient is well developed and appropriate for usual state of health in no apparent distress HEENT: Pupils equal, round, and reactive to light. EOMI. There is no scleral icterus. NECK: C-spine is soft and supple, there is no meningismus. There is no cervical lymphadenopathy. LUNGS: Clear to auscultation bilaterally. There are no rales, wheezes or rhonchi. HEART: Regular rate and rhythm, no murmurs, clicks, rubs or gallops. Procedures/MDM Patient was taken to a room, seen and examined Medical decision makin-year-old male presents with what appears to be an uncomplicated viral illness. Patient likely has influenza. Patient appears to be nontoxic and appropriate for outpatient care. Departure Diagnosis: Primary Impression: Influenza Condition: Stable Patient Instructions: Influenza (Adult) Additional Instructions: Please see your doctor if not better in the next 2 days VERNA FORREST Nov 10, 2018 08:00
[2018-11-10 08:19] VITALS: BP 151/98; PULSE 81
== END 2018-11-10 08:21 | disposition home or self-care (01) ==
LOC: FTE 07:48
DX: J11.1 Influenza due to unidentified influenza virus with other respiratory manifestations (principal); I10 Essential (primary) hypertension
CPT/HCPCS: 99283

== ENCOUNTER 2019-03-27 12:36 | Day surgery (SDC) | payer BC ==
[~2019-03-27] VITALS: Ht 167.6 cm; Wt 111.3 kg
[~2019-03-27 12:36] MED LIST changes: +OSEL75CA23 PO
[2019-03-27 13:18] VITALS: Ht 167.6 cm; Wt 111.3 kg
[2019-03-27 13:32] VITALS: BP 126/83; PULSE 67; RESP 16
--- NOTE | 2019-03-27 13:48 | HPN ---
Date/Time of Note Date/Time of Note DATE: 03/27/19 TIME: 13:48 Interval H&P Admission Note Pt. seen H&P reviewed: No system changes HAMIDA RAY March 27, 2019 13:48
--- NOTE | 2019-03-27 13:50 | PREAC ---
Date/Time of Note Date/Time of Note DATE: 03/27/19 TIME: 13:48 Anesthesia Eval and Record Evaluation Time Pre-Procedure Interview DATE: 03/27/19 TIME: 13:48 Age 53 Sex male NPO: 8 hrs Preoperative diagnosis Upper Abd Pain Planned procedure EGD Past Medical History Past Medical History: Includes Cardio: HTN, Dyslipidemia Pulm: Sleep Apnea Surgery & Anesthesia Issues No known issue Meds Anticoagulation: No Beta Smitha within 24 hr: No Reason Beta Smitha not given: Pt. not on B-Smitha Reported Medications Benazepril Hcl* (Benazepril Hcl*) 20 Mg Tablet, 20 MG PO DAILY, #30 TAB 03/15/18 Discontinued Reported Medications Hydrochlorothiazide* (Hydrochlorothiazide*) 12.5 Mg Tablet, 12.5 MG PO DAILY, #30 TAB 03/15/18 Esomeprazole Mag Trihydrate (Nexium) 40 Mg Capsule.dr, 40 MG PO DAILY, #30 CAP 03/15/18 Atorvastatin Calcium* (Atorvastatin Calcium*) 20 Mg Tablet, 20 MG PO QHS, #30 TAB 11/25/15 Discontinued Scripts Oseltamivir Phosphate* (Tamiflu*) 75 Mg Capsule, 75 MG PO BID for 5 Days, CAP Prov:VERNA FORREST 11/10/18 Diclofenac Sodium* (Voltaren* Gel) 1% -100 Gm Gel, 2 GM TOP QID, #1 TUB Prov:MARGIE MORA PA-C 03/28/18 Naproxen* (Naprosyn*) 500 Mg Tablet, 500 MG PO BID PRN for PAIN AND/OR INFLAMMATION, #30 TAB Prov:MARGIE MORA PA-C 03/28/18 Meds reviewed: Yes Allergies Coded Allergies: No Known Drug Allergies (Verified Allergy, Unknown, 03/28/18) Allergies Reviewed: Yes Labs/Studies Labs Reviewed: Reviewed by anesthesiologist test: N/A Studies: ECG (n/a), CXR (n/a) Pre-procedure Exam Last vitals Vital Signs Date Temp Pulse Resp B/P (MAP) Pulse Ox O2 O2 Flow FiO2 Time Delivery Rate 03/27/19 97.5 67 16 126/83 94 Room Air 13:32 (97) Airway: Adequate mouth opening, Adequate thyromental dist Mallampati: Mallampati II Teeth: Normal Lung: Normal Heart: Normal ASA Physical Status ASA physical status: 2 Emergency: None Planned Anesthetic General/MAC: MAC Planned Pain Management Parenteral pain med Pre-operative Attestations Prior to commencing anesthesia and surgery, the patient was re-evaluated, there was verification of: *The patient's identity *The results of appropriate recent lab work and preoperative vital signs *The above evaluation not changing prior to induction *Anesthetic plan, risk benefits, alternative and complications discussed with patient/family; questions answered; patient/family understands, accepts and wishes to proceed. JOANNE UMANA MD March 27, 2019 13:50
[2019-03-27] MEDS ORDERED: PROPOFOL 20 ML ONE (14:01)
--- NOTE | 2019-03-27 14:03 | PAC ---
Date/Time of Note Date/Time of Note DATE: 03/27/19 TIME: 14:02 Post-Anesthesia Notes Post-Anesthesia Note Last documented vital signs Vital Signs Date Temp Pulse Resp B/P (MAP) Pulse Ox O2 O2 Flow FiO2 Time Delivery Rate 03/27/19 97.5 67 16 126/83 94 Room Air 14:14 (97) Activity: WNL Respiratory function: WNL Cardiovascular function: WNL Mental status: Baseline Pain reasonably controlled: Yes Hydration appropriate: Yes Nausea/Vomiting absent: Yes JOANNE UMANA MD March 27, 2019 14:03
[2019-03-27 14:29] VITALS: BP 131/81; PULSE 66; RESP 19
== END 2019-03-27 16:21 | disposition home or self-care (01) ==
LOC: GIL 12:36
PROVIDERS: ATTEND Internal Medicine Gastroenterology
DX: K22.2 Esophageal obstruction (principal); E11.9 Type 2 diabetes mellitus without complications
CPT/HCPCS: 43239; 88305; Z7610

== ENCOUNTER 2019-06-09 07:49 | Day surgery (SDC) | payer BC ==
[~2019-06-09] VITALS: Ht 167.6 cm; Wt 113.2 kg
[2019-06-09] VITALS (10 sets, daily range): BP systolic 123–171; BP diastolic 75–110; PULSE 63–72; RESP 13–24; Ht 167.6 cm; Wt 113.2 kg
[~2019-06-09 07:49] MED LIST changes: -ATOR20TA38 PO; -DICL100G37 TOP; -ESOM40CA PO; -HYDR12.58 PO; +HYDROCHLOROTHIAZIDE; -NAPR-985 PO; -OSEL75CA23 PO
--- NOTE | 2019-06-09 10:49 | PREAC ---
Date/Time of Note Date/Time of Note DATE: 06/09/19 TIME: 10:48 Anesthesia Eval and Record Evaluation Time Pre-Procedure Interview DATE: 06/09/19 TIME: 10:48 Age 53 Sex male NPO: 8 hrs Preoperative diagnosis SCHATZKI RING Planned procedure EGD WITH DILATATION Past Medical History Past Medical History: Includes Cardio: HTN GI: Morbid obesity Surgery & Anesthesia Issues No known issue Meds Anticoagulation: No Beta Smitha within 24 hr: No Reason Beta Smitha not given: Pt. not on B-Smitha Reported Medications [Hydrochlorothiazide] No Conflict Check 06/09/19 Benazepril Hcl* (Benazepril Hcl*) 20 Mg Tablet, 20 MG PO DAILY, #30 TAB 03/15/18 Meds reviewed: Yes Allergies Coded Allergies: No Known Drug Allergies (Verified Allergy, Unknown, 03/28/18) Allergies Reviewed: Yes Labs/Studies Labs Reviewed: Reviewed by anesthesiologist test: N/A Pre-procedure Exam Airway: Adequate mouth opening, Adequate thyromental dist Mallampati: Mallampati II Teeth: Normal Lung: Normal Heart: Normal ASA Physical Status ASA physical status: 3 Emergency: None Planned Anesthetic General/MAC: MAC Planned Pain Management Parenteral pain med Pre-operative Attestations Prior to commencing anesthesia and surgery, the patient was re-evaluated, there was verification of: *The patient's identity *The results of appropriate recent lab work and preoperative vital signs *The above evaluation not changing prior to induction *Anesthetic plan, risk benefits, alternative and complications discussed with patient/family; questions answered; patient/family understands, accepts and wishes to proceed. Mike Mckeon M.D. Jun 09, 2019 10:49
[2019-06-09] MEDS ORDERED: PROPOFOL 40 ML ONE (10:50)
[2019-06-09] MEDS ORDERED: FENTAnyl 50 MCG/ML VIAL ONE (10:50)
[2019-06-09] MEDS ORDERED: LIDOCAINE 2% (SDV) 5 ML INJ ONE (10:50)
--- NOTE | 2019-06-09 11:33 | PAC ---
Date/Time of Note Date/Time of Note DATE: 06/09/19 TIME: 11:33 Post-Anesthesia Notes Post-Anesthesia Note Last documented vital signs HR 74 RR 14 BP 165/85 T 98 Activity: WNL Respiratory function: WNL Cardiovascular function: WNL Mental status: Baseline Pain reasonably controlled: Yes Hydration appropriate: Yes Nausea/Vomiting absent: Yes Mike Mckeon M.D. Jun 09, 2019 11:33
[2019-06-09] MEDS ORDERED: hydrALAzine 20 MG INJ ONE (11:35)
[2019-06-09] MEDS ORDERED: hydrALAzine 20 MG INJ IV PRN (12:00)
== END 2019-06-09 12:50 | disposition home or self-care (01) ==
LOC: GIL 07:49
PROVIDERS: ATTEND Internal Medicine Gastroenterology
DX: R13.10 Dysphagia, unspecified (principal)
CPT/HCPCS: 43239; 88305; 88313; J0360; J3010; Z7610